=== PATIENT | male | born 1960 | race American Indian/Alaskan Native ===

== ENCOUNTER 2017-10-18 10:58 | Outpatient (CLI) | payer MEDICARE, OTHER ==
--- NOTE | 2017-10-18 17:40 | XRay Report ---
FINAL REPORT EXAM: XR KNEE 4+V RT HISTORY: RIGHT KNEE PAIN TECHNIQUE: Right knee 2 views PRIORS: None. FINDINGS: There is medial and lateral tibiofemoral joint space narrowing greatest at the medial compartment. There is moderate patellofemoral joint space narrowing. Small joint effusion noted. No fracture is identified. No dislocation seen. IMPRESSION: Moderate DJD Small joint effusion
== END 2017-10-18 10:59 | disposition home or self-care (01) ==
LOC: SPVIMAG 10:58
PROVIDERS: ATTEND Orthopaedic Surgery Sports Medicine
DX: M25.461 Effusion, right knee (principal); M25.561 Pain in right knee